=== PATIENT | male | born 1940 | race Caucasian/White ===

== ENCOUNTER → 2018-05-29 | Outpatient (CLI) | payer OTHER ==
[~2018-05-29] MED LIST: ALLOPURINOL 10100 M1 PO; ASPIRIN325 PO; COLACE 100 MG100 MG PO; COZAAR 25 MG TA25 M1 PO; GEMFIBROZIL 60600 MG PO; HYDROCHLOROTH12.5 M1 PO; LOTENSIN20 MG PO; METAMUCIL1 EAC1 PO; NEURONTIN 400400 M1 PO; NEURONTIN600 MG PO; NORVASC5 MG PO; PERCOCET PO; SIMVASTATIN40 MG PO; XARELTO10 MG PO
== END ==
LOC: M.MRI 08:13
DX: Z01.818 Encounter for other preprocedural examination (principal); S83.207A Unspecified tear of unspecified meniscus, current injury, left knee, initial encounter; S83.206A Unspecified tear of unspecified meniscus, current injury, right knee, initial encounter; M25.461 Effusion, right knee; M17.11 Unilateral primary osteoarthritis, right knee; I10 Essential (primary) hypertension; X58.XXXA Exposure to other specified factors, initial encounter; Y93.89 Activity, other specified; Y92.89 Other specified places as the place of occurrence of the external cause; Y99.8 Other external cause status

== ENCOUNTER 2018-06-16 06:53 | Inpatient (IN) | payer OTHER ==
[2018-06-04 08:09] LABS: HEMATOCRIT 35.9 % (42.0-52.0); MCH 31.2 pg (26.0-34.0); MCHC 33.5 g/dL (28.0-37.0); RBC 3.86 mil/uL (4.50-6.00); RDW-CV 13.6 % (10.5-14.5); WBC 5.9 thou/uL (4.0-11.0)
[2018-06-04 08:19] LABS: URINE BILIRUBIN NEGATIVE (Negative); URINE BLOOD NEGATIVE (Negative); URINE CLARITY CLEAR; URINE COLOR YELLOW; URINE GLUCOSE-RANDOM NEGATIVE (Negative); URINE KETONES NEGATIVE (Negative); URINE LEUKOCYTES-REFLEX NEGATIVE (Negative); URINE NITRITE-REFLEX NEGATIVE (Negative); URINE PROTEIN 2+ (Negative); URINE SPECIFIC GRAVITY 1.025 (1.005-1.030); URINE UROBILINOGEN 0.2 E.U./dl (0.2-1.0)
[2018-06-04 08:26] LABS: BACTERIA-REFLEX 1-9 Few /HPF (None Seen); CRYSTALS None Seen /LPF (None Seen); HYALINE CASTS 0-3 Few /LPF (None Seen); MUCUS 0-3 Light strn/LPF (None Seen); SQUAMOUS 0-3 Few /LPF (0-3); URINE RBC 0-2 Rare /HPF (0-2); URINE WBC-REFLEX 0-5 Rare /HPF (0-5)
[2018-06-04 08:46] LABS: ALBUMIN 4.1 g/dL (3.4-5.0); CALCIUM 9.6 mg/dL (8.5-10.1); CREATININE 1.8 mg/dL (0.6-1.3); TOTAL BILIRUBIN 0.3 mg/dL (<0.1-1.0); TOTAL PROTEIN 7.3 g/dL (6.4-8.2)
[2018-06-04 09:13] LABS: INR 1.1; PROTIME 10.8 Seconds (9.20-11.50)
[~2018-06-16] VITALS: Ht 172.7 cm; Wt 102.1 kg
[~2018-06-16 06:53] MED LIST changes: -ASPIRIN325 PO; -COLACE 100 MG100 MG PO; -METAMUCIL1 EAC1 PO; -PERCOCET PO; -XARELTO10 MG PO
[2018-06-16 09:43] VITALS: BP 127/77
[2018-06-16 14:00] VITALS: BP 144/69
[2018-06-16 21:20] VITALS: BP 111/66
[2018-06-17 00:20] VITALS: BP 108/60
[2018-06-17 04:21] VITALS: BP 112/65
[2018-06-17 05:07] LABS: HEMATOCRIT 31.4 % (42.0-52.0); HEMOGLOBIN 10.7 gm/dL (14.0-18.0)
[2018-06-17 08:00] VITALS: BP 126/65
[2018-06-17] MEDS ORDERED: PERCOCET PO (10:19)
[2018-06-17] MEDS ORDERED: XARELTO10 MG PO (10:19)
[2018-06-17] MEDS ORDERED: METAMUCIL1 EAC1 PO (10:22)
[2018-06-17] MEDS ORDERED: COLACE 100 MG100 MG PO (10:22)
[2018-06-17 10:23] VITALS: BP 128/65
[2018-06-17] MEDS ORDERED: ASPIRIN325 PO (14:11)
--- NOTE | 2018-06-30 10:22 | OP ---
[facility] [address] [place] [address] OPERATIVE REPORT Name: JUSTINO JOHN Room: [address] [place] .R.#: [id number] Admission: 06/16/18 Attend Phys: Juan Koo Discharge: 06/17/18 Date of : 44 Report #: [id number] THIS REPORT FOR: //name// CC: Belinda Hickman DATE OF SERVICE: 06/16/2018 PREOPERATIVE DIAGNOSIS: Right knee osteoarthritis. POSTOPERATIVE DIAGNOSIS: Right knee osteoarthritis. PROCEDURE: Right total knee arthroplasty. SURGEON: Destin Porter II, DO COCKTAIL WAITRESS: ALDAIR Hammonds. ANESTHESIA: General endotracheal. ESTIMATED BLOOD LOSS: 50 mL ANTIBIOTICS: Ancef preoperatively. DRAINS: Medium Hemovac. COMPLICATIONS: None. DISPOSITION: Stable to recovery room. IMPLANTS: Listed in the operative record and progress note. BRIEF HISTORY: The patient was seen in preoperative area. Preoperative H and P was performed. Site was marked, questions were answered. Risks and benefits were discussed with the patient in detail about surgery. The patient wished to proceeding assuming all risks. DESCRIPTION OF PROCEDURE: The patient was taken to the operative suite and placed supine on the operating table and given appropriate anesthesia. A well-padded tourniquet was applied to the upper thigh, was inflated to 300 mmHg after gravity exsanguination. The operative knee was sterilely prepped and draped. Surgery began by midline incision, carried down to subcutaneous tissues. A medial patellofemoral arthrotomy was performed and carried down to bone. Patella was then everted and excess soft tissue removed from around the femur. Femoral cutting block was then applied, checked with a drop blanquita for [facility] [address] [place] [address] OPERATIVE REPORT Name: JUSTINO JOHN Room: [address] [place] ..#: [id number] Admission: 06/16/18 Attend Phys: Juan Koo Discharge: 06/17/18 Date of : 44 Report #: [id number] rotational alignment, pinned in appropriate position and appropriate cuts were made. A 4-in-1 cutting block was then applied, checked for rotational alignment, pinned in appropriate position and appropriate cuts were made. The tibia was exposed. The excess meniscus was removed. Retraction was placed on the collateral ligaments. Tibial cutting block was then applied, pinned in appropriate position, checked with a drop blanquita for rotational alignment and slope and appropriate cuts were made. Tibia bone was removed. Tibial baseplate was applied, checked for rotational alignment with drop blanquita, pinned in appropriate position. Femur was then applied and the box cut was reamed. It was then trialed with appropriate spacer, which showed excellent fit and fill and excellent stability of the knee through all range of motion. The patella was then reamed in appropriate fashion and sized for appropriate size. Three peg holes were drilled and was then trialed and showed excellent flexion, extension, excellent tracking of patella within the groove. These trials were removed. The tibia was punched in appropriate fashion. Bone ends were cleansed with Pulsavac irrigation. Cement was mixed and applied to the final implants. Knee was then malleted in position and held the knee in extension and compressed to allow the cement to cure. After cured, excess cement was removed using Rhinelander and osteotome. The wound was then copiously irrigated and the final spacer was then malleted in position. Tourniquet was deflated. Hemostasis was obtained with cautery. Pain cocktail was injected. PRP gel was sprayed throughout the internal aspects of the knee. Medium Hemovac drain was applied. The capsule was closed with #2 FiberWire and 1 Vicryl in [id number] fashion. Skin was closed with 2-0 Vicryl and running 3-0 Monocryl. Dermabond was applied. Hang wrap and PolarCare applied. The patient was transported to recovery room in stable condition. Counts were correct throughout the procedure. <ELECTRONICALLY SIGNED> By: Destin Porter II, DO 06/30/18 [id number] Porter II, DO /nt
== END 2018-06-17 14:50 | disposition home health service (06) | DRG 470 ==
LOC: M.PRE 06:53 → M.TBA 08:41 → M.ORTHSURG 08:41 → M.PRE 09:41 → M.ORTHSURG 13:04 → M.PRE 14:51 → M.ORTHSURG 06-17 14:50
PROVIDERS: Orthopaedic Surgery; ADMIT Internal Medicine
PROC: 0SRC0J9 Replacement of Right Knee Joint with Synthetic Substitute, Cemented, Open Approach (ICD-10-PCS; principal; 2018-06-16)
DX: M17.11 Unilateral primary osteoarthritis, right knee (principal); E78.5 Hyperlipidemia, unspecified; I10 Essential (primary) hypertension; Z96.652 Presence of left artificial knee joint; G47.33 Obstructive sleep apnea (adult) (pediatric); M10.9 Gout, unspecified; N28.9 Disorder of kidney and ureter, unspecified; Z79.899 Other long term (current) drug therapy; Z84.1 Family history of disorders of kidney and ureter